=== PATIENT | female | born 1975 | race Caucasian/White ===

== ENCOUNTER 2016-09-04 | Observation (INO) | payer OTHER ==
[2016-09-04] MEDS ORDERED: ASPIRIN 81 MG CHEW PO STA (00:26)
--- NOTE | 2016-09-04 00:47 | ED ---
Chest Pain HPI - General Chief Complaint: Chest Pain Stated Complaint: CHEST PAIN Time Seen by Provider: 09/04/16 00:26 Source: patient, RN notes reviewed Mode of arrival: wheelchair Limitations: no limitations - History of Present Illness Initial Comments: 40-year-old female presents emergency Department with chief complaint of chest pain. Patient states started around 6 PM this afternoon. Patient states that she had centralized chest pain that has radiated up towards her left shoulder, left neck region. Patient states she has some associated shortness of breath. Patient has no known cardiac disease. Patient is a daily smoker but denies hyperlipidemia, hypertension, diabetes, family history of heart disease. Patient states nothing seems to make symptoms better or worse. states the pain is still present. Patient denies palpitations, nausea, vomiting, diaphoretic episodes. - Related Data Home Medications Medication Instructions Recorded Confirmed No Known Home Medications [No 09/04/16 09/04/16 Known Home Medications] Allergies Allergy/AdvReac Type Severity Reaction Status Date / Time No Known Allergies Allergy Verified 09/04/16 00:18 Review of Systems ROS Statement: Those systems with pertinent positive or pertinent negative responses have been documented in the HPI. ROS Other: All systems not noted in ROS Statement are negative. EKG Findings - EKG Comments: EKG Findings:: EKG performed at 0:28 sinus rhythm with PVC, left atrial enlargement, rate of 78, IA interval 152, QS duration 94, QT/QTC 388/442 Past Medical History Past Medical History: Fibromyalgia History of Any Multi-Drug Resistant Organisms: None Reported Past Surgical History: Tubal Ligation, Uterine Ablation Past Anesthesia/Blood Transfusion Reactions: No Reported Reaction Past Psychological History: No Psychological Hx Reported Smoking Status: Current every day smoker Past Alcohol Use History: Occasional Past Drug Use History: None Reported - Past Family History Mother Family Medical History: No Reported History General Exam Limitations: no limitations General appearance: alert, in no apparent distress Head exam: Present: atraumatic, normocephalic, normal inspection ENT exam: Present: normal exam Neck exam: Present: normal inspection, full ROM. Absent: tenderness, meningismus, lymphadenopathy Respiratory exam: Present: normal lung sounds bilaterally. Absent: respiratory distress, wheezes, rales, rhonchi, stridor, chest wall tenderness Cardiovascular Exam: Present: regular rate, normal rhythm, normal heart sounds. Absent: systolic murmur, diastolic murmur, rubs, gallop, clicks GI/Abdominal exam: Present: soft, normal bowel sounds. Absent: distended, tenderness, guarding, rebound, rigid Course Vital Signs 09/04/16 00:16 Temperature 98.2 F Pulse Rate 91 Respiratory 18 Rate Blood Pressure 181/95 O2 Sat by Pulse 99 Oximetry Disposition Clinical Impression: Unstable angina pectoris Disposition: ADMITTED IP TO THIS HOSP Condition: Good
[2016-09-04 00:58] LABS: Basophils # (A) 0.1 k/uL (0-0.2); Basophils % (A) 1 %; CH 32.6; CHCM 33.8; Eosinophils # (A) 0.1 k/uL (0-0.7); Eosinophils % (A) 2 %; HCT 44.5 % (34.0-46.0); HDW 1.93; HGB 14.8 gm/dL (11.4-16.0); Luc # (Auto) 0.13; Luc % (Auto) 2; Lymphocytes # (A) 2.5 k/uL (1.0-4.8); Lymphocytes % (A) 33 %; MCH 32.2 pg (25.0-35.0); MCHC 33.2 g/dL (31.0-37.0); Monocytes # (A) 0.5 k/uL (0-1.0); Monocytes % (A) 6 %; Neutrophils # (A) 4.2 k/uL (1.3-7.7); Neutrophils % (A) 56 %; RBC 4.59 m/uL (3.80-5.40); RDW 12.8 % (11.5-15.5); WBC 7.5 k/uL (3.8-10.6); WBC (Perox) 7.21
[2016-09-04 01:11] LABS: ALT 61 U/L (9-52); AST 40 U/L (14-36); Alkaline Phosphatase 81 U/L (38-126); Anion Gap 11 mmol/L; Blood Urea Nitrogen 17 mg/dL (7-17); Calcium 9.5 mg/dL (8.4-10.2); Carbon Dioxide 25 mmol/L (22-30); Chloride 99 mmol/L (98-107); Glucose 88 mg/dL (74-99); Magnesium 1.8 mg/dL (1.6-2.3); Non-African American GFR(MDRD) >60 (>60 ml/min/1.73 sqM); Partial Thromboplastin Time 24.4 sec (22.0-30.0); Potassium 3.7 mmol/L (3.5-5.1); Prothrombin Time 9.8 sec (9.0-12.0); Sodium 135 mmol/L (137-145); Total Bilirubin 1.3 mg/dL (0.2-1.3); Total Protein 7.6 g/dL (6.3-8.2)
[2016-09-04 01:25] LABS: Creatine Kinase 45 U/L (30-135)
--- NOTE | 2016-09-04 01:30 | XR ---
EXAM: XR Chest, 2 Views. CLINICAL HISTORY: Reason: Chest Pain TECHNIQUE: Frontal and lateral views of the chest. COMPARISON: No relevant prior studies available. FINDINGS: Lungs: Unremarkable. No consolidation. Pleural space: Unremarkable. No pneumothorax. Heart: Unremarkable. No cardiomegaly. Mediastinum: Unremarkable. Bones/joints: Unremarkable. IMPRESSION: Unremarkable chest x-rays.
[2016-09-04 01:37] LABS: Creatine Kinase MB <0.2 ng/mL (0.0-2.4); Troponin I <0.012 ng/mL (0.000-0.034)
[2016-09-04] MEDS ORDERED: HEPARIN SODIUM,PORCINE 5,000 UNIT/ML 1 ML VIAL IV ONE (01:53)
[2016-09-04] MEDS ORDERED: NITROGLYCERIN SL TABS 0.4 MG TAB SUBLINGUAL PRN (01:53)
[2016-09-04] MEDS ORDERED: HEPARIN SODIUM,PORCINE/D5W PMX 25,000 UNIT in DEXTROSE/WATER 1 500ML.BAG IV SCH (02:00)
[2016-09-04 03:05] VITALS: BMI 23.6
[2016-09-04 08:12] LABS: Creatine Kinase 42 U/L (30-135)
[2016-09-04 08:23] LABS: Creatine Kinase MB <0.2 ng/mL (0.0-2.4); Troponin I <0.012 ng/mL (0.000-0.034)
[2016-09-04 08:52] VITALS: RESP 16
--- NOTE | 2016-09-04 11:35 | ECHOF ---
Referral Reason:chest pain MEASUREMENTS -------- HEIGHT: 152.4 cm WEIGHT: 74.8 kg BP: 132/90 RVIDd: 3.2 cm (< 3.3) IVSd: 1.0 cm (0.6 - 1.1) LVIDd: 4.3 cm (3.9 - 5.3) LVPWd: 1.0 cm (0.6 - 1.1) IVSs: 1.3 cm LVIDs: 3.3 cm LVPWs: 1.2 cm LAESV Index (A-L): 26.30 ml/m Ao Diam: 2.8 cm (2.0 - 3.7) AV Cusp: 2.2 cm (1.5 - 2.6) LA Diam: 3.4 cm (2.7 - 3.8) MV EXCURSION: 19.783 mm (> 18.000) MV EF SLOPE: 74 mm/s (70 - 150) EPSS: 0.7 cm MV E Clark: 0.84 m/s MV DecT: 304 ms MV A Clark: 0.83 m/s MV E/A Ratio: 1.02 RAP: 5.00 mmHg RVSP: 24.79 mmHg FINDINGS -------- Sinus rhythm. This was a technically good study. LV size, wall thickness and systolic function are normal, with an EF greater than 55%. The right ventricle is normal in size. Normal LA size by volume 22+/-6 ml/m2. The right atrial size is normal. The aortic valve is trileaflet, and appears structurally normal. No aortic stenosis or regurgitation. Mild mitral regurgitation is present. Mild tricuspid regurgitation present. There is no evidence of pulmonary hypertension. The right ventricular systolic pressure, as measured by Doppler, is 24.79mmHg. There is no pulmonic regurgitation present. The aortic root size is normal. There is no pericardial effusion. CONCLUSIONS -------- 1. LV size, wall thickness and systolic function are normal, with an EF greater than 55%. 2. Mild mitral regurgitation is present. 3. Mild tricuspid regurgitation present. 4. There is no evidence of pulmonary hypertension. 5. The right ventricular systolic pressure, as measured by Doppler, is 24.79mmHg. RETOUCHING OPERATOR: Palmira Aguilar RDCS
--- NOTE | 2016-09-04 11:39 | P.CRDCN ---
History of Present Illness Consult date: 09/04/16 Requesting physician: Collin Johnson Consult reason: chest pain Chief complaint: chest pain History of present illness: This is a 40-year-old female with history of nicotine dependence, who presents to the hospital with symptoms of chest pressure and heaviness with radiation to the left shoulder and neck area. She did have mild associated shortness of breath as well. She also states that occasionally she gets a sharp pain in her epigastric area which lasts only seconds at a time.Chest pain she is experiencing at this time worsens with deep breathing or with movement. Cardiac risk factors are negative for hypertension, no diabetes, no hyperlipidemia, no family history of premature coronary artery disease.patient denies any recent fever or chills at home. Prior surgeries include tubal ligation and breast augmentation. Troponins on presentation here were negative 2. Potassium 3.7, BUN 17, creatinine 0.7. AST 40, ALT 61.CBC normal.blood pressure on arrival 181/95 heart rate in the 90s, 99% on room air.Blood pressure this morning 132/80 with a heart rate in the 60s.EKG shows normal sinus rhythm with no acute changes.chest x-ray normal. Past Medical History Past Medical History: Fibromyalgia History of Any Multi-Drug Resistant Organisms: None Reported Past Surgical History: Tubal Ligation, Uterine Ablation Additional Past Surgical History / Comment(s): breast augmentation Past Anesthesia/Blood Transfusion Reactions: No Reported Reaction Past Psychological History: No Psychological Hx Reported Smoking Status: Current every day smoker Past Alcohol Use History: Occasional Past Drug Use History: None Reported - Past Family History Mother Family Medical History: No Reported History Medications and Allergies Home Medications Medication Instructions Recorded Confirmed Type Ibuprofen [Advil] 600 mg PO Q8HR PRN 09/04/16 09/04/16 History Allergies Allergy/AdvReac Type Severity Reaction Status Date / Time No Known Allergies Allergy Verified 09/04/16 07:53 Physical Exam Vitals: Vital Signs Temp Pulse Pulse Resp BP BP Pulse Ox 09/04/16 08:07 98 09/04/16 08:00 98.0 F 63 16 133/87 99 09/04/16 03:48 18 09/04/16 02:49 98.7 F 98 18 132/90 98 09/04/16 02:25 98.2 F 68 18 146/95 98 Intake and Output 09/03/16 09/04/16 09/04/16 22:59 06:59 14:59 Other: # Voids 1 Weight 74.843 kg PHYSICAL EXAMINATION: HEENT: [Head is atraumatic, normocephalic. Pupils equal, round. Neck is supple. There is no elevated jugular venous pressure.] HEART EXAMINATION: [Heart S1, S2 normal. No murmur or gallop heard.] CHEST EXAMINATION:[ Lungs are clear to auscultation and precussion. No chest wall tenderness is noted on palpation or with deep breathing.] ABDOMEN: [ Soft, nontender. Bowel sounds are heard. No organomegaly noted]. EXTREMITIES:[ 2+ peripheral pulses with no evidence of peripheral edema and no calf tenderness noted]. NEUROLOGIC [patient is awake, alert and oriented -3.] . Results 09/04/16 00:42 09/04/16 00:42 Cardiac Enzymes 09/04/16 Range/Units 07:08 CK-MB (CK-2) <0.2 (0.0-2.4) ng/mL Troponin I <0.012 (0.000-0.034) ng/mL Coagulation 09/04/16 Range/Units 08:22 APTT 42.8 H (22.0-30.0) sec Current Medications Generic Name Dose Route Start Last Admin Trade Name Freq PRN Reason Stop Dose Admin Aspirin 325 mg 09/05/16 09:00 Aspirin PO DAILY [facility] Heparin Sodium/Dextrose 25,000 500 mls @ 17.96 mls/hr 09/04/16 02:00 02:20 unit/ IV Solution IV 12 units/kg/hr .Q24H [facility] 17.96 mls/hr Protocol Administration 12 UNITS/KG/HR Nitroglycerin 0.4 mg 09/04/16 01:53 Nitrostat SUBLINGUAL Q5M PRN Chest Pain Intake and Output 09/03/16 09/04/16 09/04/16 22:59 06:59 14:59 Other: # Voids 1 Weight 74.843 kg EKG Interpretations (text) EKG shows normal sinus rhythm with no acute changes. Assessment and Plan Plan: assessment and plan #1 chest pain, atypical for acute coronary syndrome. Troponins negative 2. EKG does not show any significant changes #2 nicotine dependence #3 cardiac risk factors negative for hypertension, no diabetes, no hyperlipidemia, no family history of premature coronary disease #4 mildly abnormal liver enzymes Plan We will perform an echocardiogram with Doppler study. We have also recommended the patient undergo stress echocardiographic study today. If these tests are negative, we would recommend an ultrasound of the gallbladder because of the abnormal liver enzymes. Further recommendations to follow. DNP note has been reviewed, I agree with a documented findings and plan of care. Patient was seen and examined.
[2016-09-04 12:23] VITALS: BP 136/87; PULSE 73; TEMP 97.8
--- NOTE | 2016-09-04 14:25 | ECHOS ---
DATE OF SERVICE: 09/04/2016 AGE: 40Y SEX: F HT: 70" WT: 165 lbs. Protocol Je: X Others: Stress Echo Stage: 3 Dur. of Exercise: 9:00 *Heart Rate Blood Pressure *Rest: 85 Rest: 135/99 * *Max. Achieved: 158 Maximum BP: 169/77 85% PMHR: 153 100% PMHR: 180 *METS: 9.9 INDICATIONS: Chest pain. MEDICATIONS: - Patient was exercised for a total period of 9 minutes. Peak heart rate of 158 was achieved. Maximum blood pressure of 169/77 mmHg was noted. Resting EKG shows normal sinus rhythm with normal VT interval and QRS duration and normal ST-T waves. No ST segment depression suggestive of ischemia is noted. Patient did not complain of any chest pain during the test. The baseline echocardiographic images reveal a normal left ventricular chamber size with normal left ventricular systolic function. In the immediate postexercise period, normal increase in the wall thickness and contractility was noted. FINAL IMPRESSION: 1. This stress echocardiographic study is negative for stress-induced ischemia. 2. EKG portion of the stress test is not suggestive of ischemia.
[2016-09-04 14:53] LABS: Creatine Kinase 41 U/L (30-135)
[2016-09-04 15:06] LABS: Creatine Kinase MB 0.2 ng/mL (0.0-2.4); Troponin I <0.012 ng/mL (0.000-0.034)
--- NOTE | 2016-09-04 19:09 | HP ---
DATE OF ADMISSION: 09/04/2016 PRESENTING COMPLAINT: Chest pain. HISTORY OF PRESENTING COMPLAINT: Pleasant 40-year-old patient of Dr. Merino has a remote history of fibromyalgia. Patient presented with lower sternal chest pain, sharp, positional, more so on moving on one side. Minimal shortness of breath. No radiation. No perspiration. No dizziness. Like stated, more with moving about. Denies any cough. No fever. Patient is a smoker. No prior cardiac history. Patient is rather active. No family history of cardiac history. REVIEW OF SYSTEMS: CONSTITUTIONAL: None. HEENT: None. RESPIRATORY: Occasional cough. CARDIOVASCULAR: No precordial pain. GASTROINTESTINAL: None. : None. MUSCULOSKELETAL: As above. DERMATOLOGICAL: None. HEMATOLOGICAL: None. LYMPHATICS: None. PSYCHIATRY: None. NEUROLOGICAL: None. PAST MEDICAL HISTORY: Fibromyalgia. PAST SURGICAL HISTORY: 1. Breast augmentation. 2. Uterine ablation. 3. Tubal ligation. SOCIAL HISTORY: Smokes half a pack a day. Alcohol occasional. Lives with her boyfriend. Homemaker. FAMILY HISTORY: Reviewed; non-contributory to presentation. HOME MEDICATIONS: Advil 600 mg q.8 p.r.n. ALLERGIES: NONE. On examination, temperature 98.2, pulse 91, respiration 18, blood pressure 146/95, pulse ox 98% on room air. GENERAL APPEARANCE: Average build. Sitting up, not in distress. EYES: Pupils equal. Conjunctivae normal. HEENT: Oral cavity normal. NECK: JVD not raised. Mass not palpable. RESPIRATORY: Effort normal. Lungs are clear. CARDIOVASCULAR: First and second sounds normal. No edema. ABDOMEN: Soft, nontender. Liver and spleen not palpable. LYMPHATIC: No lymph node palpable in neck or axillae. PSYCHIATRY: Alert and oriented x3. Mood and affect normal. NEUROLOGICAL: Pupils equal. Cranial nerves grossly intact. Power and sensation grossly intact. MUSCULOSKELETAL: There is some reproducible pain in the left costochondral junction. INVESTIGATIONS: White count 7.5, hemoglobin 14.8. Potassium 3.7. BUN and creatinine are normal. Troponin x2 less than 0.012. ASSESSMENT: 1. Anterior chest wall pain, likely costochondritis. Given risk factor of smoking, rule out a cardiac cause. 2. Chronic nicotine dependence. Patient is a smoker. PLAN: Cardiology was consulted. Serial cardiac enzymes are negative. They have ordered a stress test. Patient was advised against smoking.
[2016-09-05] MEDS ORDERED: ASPIRIN 325 MG TAB PO SCH (09:00)
--- NOTE | 2016-09-05 16:45 | DS ---
DATE OF ADMISSION: 09/04/2016 DATE OF DISCHARGE: 09/04/2016 FINAL DIAGNOSES: 1. Anterior chest wall pain, likely costochondritis on the left side. 2. Chronic nicotine dependence. Patient is a smoker. HOSPITAL COURSE: This patient presented with reproducible chest pain; underwent a stress echo that was negative. On examination, some reproducible chest pain on the left costochondral junction. Patient's 2-D echo was unremarkable. Troponins were negative. CONSULTATION: [facility]. DISCHARGE MEDICATIONS: 1. Nicotine patch. 2. Advil 600 mg q.8 p.r.n. Follow up with Dr. Merino in one week.
== END 2016-09-04 16:00 | disposition home or self-care (01) ==
LOC: EC → 3OBS 01:54
PROVIDERS: ADMIT Hospitalist; ATTEND Hospitalist
DX: R07.89 Other chest pain (principal); R10.13 Epigastric pain; R06.02 Shortness of breath; R74.8 Abnormal levels of other serum enzymes; F17.200 Nicotine dependence, unspecified, uncomplicated
CPT/HCPCS: 96374; 99285; 36415; 93005; 93017; 93306; 93350; 85379; 80053; 82550; 82553; 83735; 84484; 85025; 85610; 85730; 71020; G0378; J1644 ×2

== ENCOUNTER → 2017-01-09 | Outpatient (CLI) | payer OTHER ==
--- NOTE | 2017-01-09 14:03 | US ---
EXAMINATION TYPE: US liver DATE OF EXAM: 01/09/2017 COMPARISON: NONE CLINICAL HISTORY: 41-year-old female R74.8 ABN LEVELS OF OTHER SERUM ENZYMES. TECHNIQUE: Multiple sonographic images of the right upper quadrant are obtained. FINDINGS: EXAM MEASUREMENTS: Liver Length: 15.0 cm Gallbladder Wall: 0.2 cm CBD: 0.2 cm Right Kidney: 11.6 x 4.1 x 4.7 cm Pancreas: partially obscured by bowel gas, very limited visualization Liver: Heterogeneous and echogenic. There is a 3.6 cm hypoechoic area along the gallbladder fossa perez ggestive of focal fatty sparing. Gallbladder: wnl Evidence for sonographic Min's sign: no CBD: wnl Right Kidney: No hydronephrosis IMPRESSION: 1. Findings suggest at least moderate hepatic steatosis. Correlate with LFTs, lipid profile, and jenny ent risk factors. 2. No evidence for cholelithiasis, acute cholecystitis, or biliary ductal dilatation.
== END | disposition home or self-care (01) ==
LOC: RADUSWWP 06:56
PROVIDERS: ATTEND Family Medicine
DX: R74.8 Abnormal levels of other serum enzymes (principal)
CPT/HCPCS: 76705

== ENCOUNTER → 2024-09-22 | Outpatient (CLI) | payer OTHER ==
--- NOTE | 2024-09-22 09:07 | BD ---
EXAMINATION TYPE: Axial Bone Density DATE OF EXAM: 09/22/2024 CLINICAL HISTORY: 48 years old Female. ICD-10 CODE: Z78.0 POST MENOPAUSAL , Additional History: Height: 68.5 Weight: 180 FRAX RISK QUESTIONS: History of Fracture in Adulthood: yes 3. Menopause before 45: unknown Current Tobacco Use: yes RISK FACTORS HISTORY OF: hx of rt tib fib fx as an adult, MEDICATIONS: calcium supp., magnesium EXAM MEASUREMENTS: Bone mineral densitometry was performed using the [employer] System. Bone mineral density as measured about the Lumbar spine is: ----- L1-L4(G/cm2): 1.195 T Score Values are as follows: ----- L1: -0.7 ----- L2: -0.3 ----- L3: 0.6 ----- L4: 0.5 ----- L1-L4: 0.1 Z Score Values are as follows: ----- L1: -0.9 ----- L2: -0.5 ----- L3: 0.3 ----- L4: 0.3 ----- L1-L4: -0.1 Bone mineral density is the first DEXA scan for her, baseline study. Bone mineral density about the R hip (g/cm2): 1.006 Bone mineral density about the L hip (g/cm2): 0.998 T Score values are as follows: -----R Neck: 0.0 -----L Neck: -0.1 -----R Total: 0.0 -----L Total: -0.1 Z Score values are as follows: -----R Neck: 0.3 -----L Neck: 0.2 -----R Total: 0.0 -----L Total: 0.0 Bone mineral density is a baseline study for her today. FRAX%s: The graph provided illustrates a 5.9% chance for a major osteoporotic fx and a 0.2% chance fo r the hips probability for fx in 10 years time. IMPRESSION: Normal (Values between +1 and -1 indicate normal bone mass). Consider repeating this study in 5 year s or sooner if there is some new clinical indication. NOTE: T-SCORE=SD OF THE YOUNG ADULT MEAN. [facility], , 09/22/2024 9:04 AM
--- NOTE | 2024-09-22 13:11 | MM ---
Reason for Exam: Screening (asymptomatic). Last mammogram was performed 5 year(s) and 0 month(s) ago. Patient History: Menarche at age 13. First Full-Term at age 22. Patient has history of breast feeding. Risk Values: Tammie 5 year model risk: 0.8%. NCI Lifetime model risk: 8.3%. Prior Study Comparison: 02/28/2016 Bilateral Screening Mammogram, [facility]. 09/23/2019 Bilateral Diagnostic Mammogram, [facility]. Tissue Density: The breasts are heterogeneously dense, which may obscure small masses. Findings: Analyzed By CAD. Bilateral subpectoral breast implants are redemonstrated. There is new 1.9 cm right mass in the posterior upper outer aspect left breast MLO slice / approximate 5 to 6 cm distance from nipple. Overall Assessment: Incomplete: need additional imaging evaluation, BI-RAD 0 Management: Diagnostic Breast Ultrasound of the left breast. Targeted ultrasound left breast. Patient should continue monthly self-breast exams. A clinical breast exam by your physician is recommended on an annual basis. This exam should not preclude additional follow-up of suspicious palpable abnormalities. Note on Tammie scores and lifetime risk: 1. A Tammie score greater than 3% is considered moderate risk. If this is the case, consider specialist referral to assess eligibility for a risk reducing agent. 2. If overall lifetime risk for the development of breast cancer is 20% or higher, the patient may qualify for future screening with alternating mammogram and breast MRI. [facility], , 09/22/2024 1:08 PM. Electronically signed and approved by: Rico Sam M.D.
== END | disposition home or self-care (01) ==
LOC: RADMAMWWP 08:09
PROVIDERS: ATTEND Family Medicine
DX: Z12.31 Encounter for screening mammogram for malignant neoplasm of breast (principal); R92.333 Mammographic heterogeneous density, bilateral breasts; Z98.82 Breast implant status; Z78.0 Asymptomatic menopausal state
CPT/HCPCS: 77063; 77067; 77080

== ENCOUNTER → 2024-09-23 | Outpatient (CLI) | payer OTHER ==
--- NOTE | 2024-09-23 14:33 | USB ---
Reason for Exam: Additional evaluation requested from abnormal screening. Patient History: Menarche at age 13. First Full-Term at age 22. Patient has history of breast feeding. Risk Values: Tammie 5 year model risk: 0.8%. NCI Lifetime model risk: 8.3%. Technique: Method: Targeted. Prior Study Comparison: 02/28/2016 Bilateral Screening Mammogram, [facility]. 09/23/2019 Bilateral Diagnostic Mammogram, [facility]. 09/22/2024 Bilateral MG 3D screen mammo imp/cad., [facility]. Findings: The axilla of the left breast and the retroareolar of the left breast were scanned. Targeted left breast ultrasound. There is a 2.1 x 0.7 x 1.8 cm thin-walled cyst at 1:00 position 7 cm distance from nipple leak to be corresponding to the new mammogram abnormality. Overall Assessment: Benign, BI-RAD 2 Management: Screening Mammogram of both breasts in 1 year. Return to routine follow-up. A clinical breast exam by your physician is recommended on an annual basis and results should be correlated with mammographic findings. This exam should not preclude additional follow-up of suspicious palpable abnormalities. Results were given to the patient verbally at the time of exam. [facility], , 09/23/2024 1:48 PM. Electronically signed and approved by: Rcio Sam M.D.
== END | disposition home or self-care (01) ==
LOC: RADUSWWP 12:53
PROVIDERS: ATTEND Family Medicine
DX: R92.8 Other abnormal and inconclusive findings on diagnostic imaging of breast (principal); N60.02 Solitary cyst of left breast